=== PATIENT | male | born 1975 | race Two or more races ===

== ENCOUNTER 2023-06-28 09:35 | Emergency (ER) | payer MEDICAID ==
[~2023-06-28] VITALS: Ht 172.7 cm; Wt 91.8 kg
[2023-06-28 10:05] LABS: Basophils # (auto) 0.1 10 ^3/uL (0-0.2); Eosinophils # (auto) 0.2 10 ^3/uL (0-0.8); Hemoglobin 11.6 g/dL (13.5-17.5); Lymphocytes # (auto) 1.4 10 ^3/uL (0.4-5.4); Mean Corpuscular Hemoglobin 24.6 pg (28.0-32.0)
[2023-06-28 10:08] LABS: Basophils % (auto) 1.2 % (0.0-2.0); Eosinophils % (auto) 2.3 % (0.0-7.0); Lymphocytes % (auto) 14.5 % (10.0-50.0); Mean Corpuscular Hgb Conc. 32.2 g/dL (32.0-36.0); Mean Corpuscular Volume 76.4 fL (80.0-100.0); Monocytes # (auto) 0.8 10 ^3/uL (0-1.3); Monocytes % (auto) 8.2 % (0.0-12.0); Neutrophils % (auto) 73.8 % (37.0-80.0); Red Blood Cells 4.71 10^6/uL (4.5-5.90); Red Cell Distribution Width 16.8 % (11.8-14.3); White Blood Cell 9.5 10^3/uL (4.4-10.8)
[2023-06-28 10:22] VITALS: BP 127/69; TEMP 97.4
[2023-06-28 10:26] LABS: Alanine Aminotransferase 20 U/L (7-40); Albumin 4.3 g/dL (3.2-4.8); Alkaline Phosphatase 125 U/L (46-116); Anion Gap 5 (5-15); Aspartate Aminotransferase 36 U/L (13-40); BUN/Creatinine Ratio 17.5 (10.0-20.0); Blood Urea Nitrogen 14 mg/dL (9-23); Carbon Dioxide 26 mmol/L (20-30); Chloride 107 mmol/L (98-107); Glucose 96 mg/dL (74-106); Sodium 138 mmol/L (136-145)
[2023-06-28 10:27] LABS: Bilirubin, Total 0.7 mg/dL (0.2-1.0); Total Protein 8.7 g/dL (5.7-8.2)
[2023-06-28 10:52] VITALS: PULSE 67
[2023-06-28] MEDS ORDERED: AZITTAB PO (11:09)
[2023-06-28] MEDS ORDERED: LISI-711 PO (11:09)
[2023-06-28] MEDS ORDERED: GABA-1308 PO (11:09)
[2023-06-28] MEDS ORDERED: HYDR50TA32 PO (11:09)
[2023-06-28] MEDS ORDERED: ALBU108A5 IN (11:10)
[2023-06-28] MEDS ORDERED: ALBUTEROL SULF 2.5 MG/0.5ML(0.5%) NEB SOLN NEB ONE (11:15)
[2023-06-28] MEDS ORDERED: IPRATROPIUM BROM 0.5 MG/2.5ML INH SOL NEB ONE (11:15)
[2023-06-28 11:20] VITALS: RESP 20; O2SAT 94
[2023-06-28] MEDS ORDERED: cefTRIAXone SOD 1,000 MG VL IM ONE (11:45)
[2023-06-28] MEDS ORDERED: PRED20TA2 PO (11:46)
== END 2023-06-28 11:46 | disposition home or self-care (01) ==
LOC: ER 09:35
DX: J18.9 Pneumonia, unspecified organism (principal)
CPT/HCPCS: 36415; 71046; 80053; 83880; 85025; 93005; 94640; 96372; 99285; J0696; J7644

== ENCOUNTER 2023-07-04 10:33 | Inpatient (IN) | payer MEDICAID ==
[~2023-07-04] VITALS: Ht 172.7 cm; Wt 92.4 kg
[2023-07-04 04:56] VITALS: PULSE 62; RESP 20; O2SAT 94
[~2023-07-04 10:33] MED LIST: ALBU108A5 IN; AZITTAB PO; GABA-1308 PO; HYDR50TA32 PO; LISI-711 PO; PRED20TA2 PO
[2023-07-04] MEDS ORDERED: ASPirin 325 MG TAB PO ONE (10:45)
[2023-07-04 10:46] LABS: Basophils # (auto) 0.1 10 ^3/uL (0-0.2); Eosinophils # (auto) 0.2 10 ^3/uL (0-0.8); Eosinophils % (auto) 2.7 % (0.0-7.0); Lymphocytes # (auto) 1.4 10 ^3/uL (0.4-5.4); Monocytes # (auto) 0.6 10 ^3/uL (0-1.3); Monocytes % (auto) 7.3 % (0.0-12.0); Neutrophils # (auto) 6.1 10 ^3/uL (1.6-8.6); Nucleated Red Blood Cells % 0.1 %; White Blood Cell 8.4 10^3/uL (4.4-10.8)
[2023-07-04 10:48] LABS: Hematocrit 34.6 % (41.0-53.0); Lymphocytes % (auto) 16.7 % (10.0-50.0); Mean Corpuscular Hemoglobin 24.1 pg (28.0-32.0); Mean Corpuscular Hgb Conc. 31.7 g/dL (32.0-36.0); Mean Corpuscular Volume 76.2 fL (80.0-100.0); Neutrophils % (auto) 72.3 % (37.0-80.0); Red Blood Cells 4.54 10^6/uL (4.5-5.90)
[2023-07-04 11:03] VITALS: PULSE 64; O2SAT 90
[2023-07-04 11:10] LABS: Alanine Aminotransferase 49 U/L (7-40); Albumin 4.1 g/dL (3.2-4.8); Alkaline Phosphatase 121 U/L (46-116); Anion Gap 5 (5-15); Aspartate Aminotransferase 62 U/L (13-40); BUN/Creatinine Ratio 10.3 (10.0-20.0); Blood Urea Nitrogen 8 mg/dL (9-23); Calcium 9.4 mg/dL (8.5-10.1); Carbon Dioxide 27 mmol/L (20-30); Chloride 109 mmol/L (98-107); Glucose 99 mg/dL (74-106); Potassium 4.2 mmol/L (3.5-5.1); Sodium 141 mmol/L (136-145)
[2023-07-04 11:11] LABS: Bilirubin, Total 0.8 mg/dL (0.2-1.0); Total Protein 8.1 g/dL (5.7-8.2)
[2023-07-04] MEDS ORDERED: IOHEXOL 350 MG/ML 100ML IJ ONE (12:03)
[2023-07-04] MEDS ORDERED: NITROGLYCERIN 0.4 MG SL TAB SL PRN (13:15)
[2023-07-04] MEDS ORDERED: MORPHINE SULFATE INJ 2 MG/ml SYRG IV PRN (13:15)
[2023-07-04] MEDS ORDERED: ONDANSETRON HCL 4 MG/2 ML VIAL IV PRN (13:15)
[2023-07-04] MEDS ORDERED: THIAMINE HCL 100 MG TAB PO ONE (13:30)
[2023-07-04] MEDS ORDERED: methylPREDNISolone SOD SUCC 40 MG/ML VL IV ONE (13:30)
[2023-07-04] MEDS ORDERED: MULTIPLE VITAMIN TAB PO ONE (13:30)
[2023-07-04] MEDS ORDERED: FOLIC ACID 1 MG TAB PO ONE (13:30)
[2023-07-04 13:58] VITALS: BP 148/68; PULSE 64; RESP 16; TEMP 98.1; O2SAT 94
[2023-07-04 15:36] LABS: Urine Bacteria NONE SEEN /hpf (None Seen); Urine Blood Negative /uL (Negative); Urine Clarity Clear (Clear); Urine Color Colorless (Yellow); Urine Protein, UAD Negative (Negative); Urine Specific Gravity 1.035 (1.001-1.035); Urine Urobilinogen Normal (Negative); Urine WBC <1 /hpf (0 - 3); Urine pH 6.5 (5.0-8.0)
[2023-07-04] MEDS: IPRATROPIUM BROM 0.5 MG/2.5ML INH SOL NEB SCH (17:55)
[2023-07-04] MEDS: ALBUTEROL SULF 2.5 MG/0.5ML(0.5%) NEB SOLN NEB SCH (17:55)
[2023-07-04 18:05] VITALS: PULSE 20; RESP 66; O2SAT 98
[2023-07-04 19:00] VITALS: PULSE 69; RESP 28; O2SAT 92
[2023-07-04] MEDS: ATORVASTATIN 20 MG TAB PO SCH (22:00)
[2023-07-04] MEDS: GABAPENTIN 100 MG CAP PO SCH (22:00)
[2023-07-05] VITALS (17 sets, daily range): BP systolic 122–153; BP diastolic 58–79; PULSE 53–74; RESP 16–19; TEMP 97.7–98.9; O2SAT 92–100
[2023-07-05] MEDS ORDERED: CITA10TA8 PO (04:47)
[2023-07-05] MEDS: IPRATROPIUM BROM 0.5 MG/2.5ML INH SOL NEB SCH ×3 (05:58→19:02)
[2023-07-05] MEDS: ALBUTEROL SULF 2.5 MG/0.5ML(0.5%) NEB SOLN NEB SCH ×3 (05:58→19:02)
[2023-07-05 06:09] LABS: Basophils # (auto) 0 10 ^3/uL (0-0.2); Basophils % (auto) 0.1 % (0.0-2.0); Eosinophils # (auto) 0 10 ^3/uL (0-0.8); Lymphocytes # (auto) 0.9 10 ^3/uL (0.4-5.4); Monocytes # (auto) 0.5 10 ^3/uL (0-1.3); Nucleated Red Blood Cells % 0.1 %
[2023-07-05 06:11] LABS: Hematocrit 34.4 % (41.0-53.0); Lymphocytes % (auto) 9.5 % (10.0-50.0); Mean Corpuscular Hemoglobin 23.9 pg (28.0-32.0); Mean Corpuscular Volume 74.9 fL (80.0-100.0); Monocytes % (auto) 4.9 % (0.0-12.0); Neutrophils # (auto) 8.2 10 ^3/uL (1.6-8.6); Neutrophils % (auto) 85.5 % (37.0-80.0); Red Blood Cells 4.59 10^6/uL (4.5-5.90); Red Cell Distribution Width 16.8 % (11.8-14.3); White Blood Cell 9.6 10^3/uL (4.4-10.8)
[2023-07-05 06:27] LABS: Alanine Aminotransferase 40 U/L (7-40); Albumin 3.9 g/dL (3.2-4.8); Alkaline Phosphatase 108 U/L (46-116); Anion Gap 7 (5-15); Aspartate Aminotransferase 45 U/L (13-40); BUN/Creatinine Ratio 10.4 (10.0-20.0); Bilirubin, Total 0.8 mg/dL (0.2-1.0); Blood Urea Nitrogen 8 mg/dL (9-23); Calcium 9.2 mg/dL (8.5-10.1); Carbon Dioxide 24 mmol/L (20-30); Chloride 108 mmol/L (98-107); Cholesterol 139 mg/dL (< 200); Glucose 145 mg/dL (74-106); HDL Cholesterol 42 mg/dL (40-59); LDL Cholesterol 88 mg/dL (< 100); Potassium 4.4 mmol/L (3.5-5.1); Sodium 139 mmol/L (136-145); Triglycerides 54 mg/dL (< 150)
[2023-07-05] MEDS ORDERED: ADENOSINE 78 MG in GIVE UN-DILUTED 0 ML IV ONE (07:45)
[2023-07-05] MEDS ORDERED: methylPREDNISolone SOD SUCC 40 MG/ML VL IV SCH (10:00)
[2023-07-05] MEDS: FOLIC ACID 1 MG TAB PO SCH (10:11)
[2023-07-05] MEDS: MULTIPLE VITAMIN TAB PO SCH (10:11)
[2023-07-05] MEDS: GABAPENTIN 100 MG CAP PO SCH ×2 (10:11→22:16)
[2023-07-05] MEDS: LISINOPRIL 20 MG TAB PO SCH (10:11)
[2023-07-05] MEDS: ASPirin-EC 81 mg tab PO SCH (10:11)
[2023-07-05] MEDS: THIAMINE HCL 100 MG TAB PO SCH (10:12)
[2023-07-05] MEDS: PANTOPRAZOLE 40 MG TAB PO SCH (10:12)
[2023-07-05] MEDS ORDERED: DOXYCYCLINE 100 MG TAB/CAP PO ONE (11:45)
[2023-07-05] MEDS ORDERED: ACETAMINOPHEN 325 MG TAB PO PRN (18:30)
[2023-07-05] MEDS ORDERED: CITALOPRAM HYDROBR 20 MG TAB PO ONE (20:00)
[2023-07-05] MEDS: ATORVASTATIN 20 MG TAB PO SCH (22:16)
[2023-07-05] MEDS: DOXYCYCLINE 100 MG TAB/CAP PO SCH (22:16)
[2023-07-06] VITALS (9 sets, daily range): BP systolic 124–153; BP diastolic 71–86; PULSE 50–71; RESP 16–18; TEMP 97.9–98.7; O2SAT 92–100
[2023-07-06] MEDS: IPRATROPIUM BROM 0.5 MG/2.5ML INH SOL NEB SCH ×2 (06:18→12:50)
[2023-07-06] MEDS: ALBUTEROL SULF 2.5 MG/0.5ML(0.5%) NEB SOLN NEB SCH ×2 (06:18→12:50)
[2023-07-06 06:49] LABS: Basophils # (auto) 0 10 ^3/uL (0-0.2); Basophils % (auto) 0.3 % (0.0-2.0); Eosinophils # (auto) 0.1 10 ^3/uL (0-0.8); Eosinophils % (auto) 0.5 % (0.0-7.0); Hemoglobin 10.9 g/dL (13.5-17.5)
[2023-07-06 06:51] LABS: Hematocrit 34.6 % (41.0-53.0); Lymphocytes # (auto) 2.1 10 ^3/uL (0.4-5.4); Lymphocytes % (auto) 18.2 % (10.0-50.0); Mean Corpuscular Hemoglobin 23.7 pg (28.0-32.0); Mean Corpuscular Hgb Conc. 31.6 g/dL (32.0-36.0); Mean Corpuscular Volume 74.9 fL (80.0-100.0); Monocytes # (auto) 0.7 10 ^3/uL (0-1.3); Monocytes % (auto) 5.9 % (0.0-12.0); Neutrophils # (auto) 8.7 10 ^3/uL (1.6-8.6); Neutrophils % (auto) 75.1 % (37.0-80.0); Nucleated Red Blood Cells % 0.3 %; Red Blood Cells 4.62 10^6/uL (4.5-5.90); White Blood Cell 11.6 10^3/uL (4.4-10.8)
[2023-07-06 07:07] LABS: Alanine Aminotransferase 33 U/L (7-40); Albumin 3.9 g/dL (3.2-4.8); Alkaline Phosphatase 111 U/L (46-116); Anion Gap 7 (5-15); Aspartate Aminotransferase 33 U/L (13-40); BUN/Creatinine Ratio 14.5 (10.0-20.0); Blood Urea Nitrogen 10 mg/dL (9-23); Carbon Dioxide 26 mmol/L (20-30); Chloride 107 mmol/L (98-107); Glucose 89 mg/dL (74-106); LDL Cholesterol 83 mg/dL (< 100); Potassium 3.9 mmol/L (3.5-5.1); Sodium 140 mmol/L (136-145); Triglycerides 61 mg/dL (< 150)
[2023-07-06 07:08] LABS: Bilirubin, Total 0.8 mg/dL (0.2-1.0); Cholesterol 134 mg/dL (< 200); Ferritin 8.2 ng/mL (22-322); Folate (Folic Acid) 16.37 ng/mL (>5.38); HDL Cholesterol 41 mg/dL (40-59); Total Protein 7.8 g/dL (5.7-8.2)
[2023-07-06 07:26] LABS: Magnesium 1.9 mg/dL (1.6-2.6)
[2023-07-06] MEDS ORDERED: CITALOPRAM HYDROBR 20 MG TAB PO SCH (10:00)
[2023-07-06] MEDS ORDERED: FERROUS SULFATE 325mg EC TAB PO SCH (10:00)
[2023-07-06] MEDS ORDERED: ERGOCALCIFEROL 50,000 UNIT(1.25MG) CAP PO SCH (10:00)
[2023-07-06] MEDS: ASPirin-EC 81 mg tab PO SCH (11:04)
[2023-07-06] MEDS: GABAPENTIN 100 MG CAP PO SCH (11:04)
[2023-07-06] MEDS: PANTOPRAZOLE 40 MG TAB PO SCH (11:04)
[2023-07-06] MEDS: MULTIPLE VITAMIN TAB PO SCH (11:04)
[2023-07-06] MEDS: FOLIC ACID 1 MG TAB PO SCH (11:04)
[2023-07-06] MEDS: DOXYCYCLINE 100 MG TAB/CAP PO SCH (11:05)
[2023-07-06] MEDS: THIAMINE HCL 100 MG TAB PO SCH (11:05)
[2023-07-06] MEDS: LISINOPRIL 20 MG TAB PO SCH (11:08)
[2023-07-06 11:38] LABS: COVID19 ANTIGEN SOFIA FIA NEGATIVE (NEGATIVE); Rapid Influenza A Negative (Negative); Rapid Influenza B Negative (Negative)
[2023-07-06] MEDS ORDERED: ATOR20TA50 PO (13:35)
== END 2023-07-06 18:25 | disposition home or self-care (01) | DRG 142 ==
LOC: ER 10:33 → TELE 13:09 → TELE-WESTW 23:00
PROVIDERS: ADMIT Internal Medicine; ATTEND Student in an Organized Health Care Education/Training Program
DX: J84.9 Interstitial pulmonary disease, unspecified (principal); J96.01 Acute respiratory failure with hypoxia; J15.9 Unspecified bacterial pneumonia; I11.9 Hypertensive heart disease without heart failure; J84.10 Pulmonary fibrosis, unspecified; K70.30 Alcoholic cirrhosis of liver without ascites; E11.9 Type 2 diabetes mellitus without complications; D50.9 Iron deficiency anemia, unspecified; E05.90 Thyrotoxicosis, unspecified without thyrotoxic crisis or storm; E55.9 Vitamin D deficiency, unspecified; R07.81 Pleurodynia; K21.9 Gastro-esophageal reflux disease without esophagitis; E66.9 Obesity, unspecified; Z20.822 Contact with and (suspected) exposure to COVID-19; E78.5 Hyperlipidemia, unspecified; J43.9 Emphysema, unspecified; F41.0 Panic disorder [episodic paroxysmal anxiety]; K80.20 Calculus of gallbladder without cholecystitis without obstruction; F10.10 Alcohol abuse, uncomplicated; F41.9 Anxiety disorder, unspecified; Z82.3 Family history of stroke; Z82.49 Family history of ischemic heart disease and other diseases of the circulatory system; Z79.899 Other long term (current) drug therapy; Z83.3 Family history of diabetes mellitus; Z68.31 Body mass index [BMI] 31.0-31.9, adult
CPT/HCPCS: 36415; 71045; 71275; 78452; 80053; 80061; 81001; 82306; 82607; 82728; 82746; 83036; 83605; 83735; 83880; 84443; 84484; 85025; 85379; 87081; 87426; 87804; 93005; 93017; 93306; 94640; G0378; J0153

== ENCOUNTER 2023-08-11 16:51 | Inpatient (IN) | payer MEDICAID ==
[~2023-08-11] VITALS: Ht 170.2 cm; Wt 94.8 kg
[~2023-08-11 16:51] MED LIST changes: +ATOR20TA50 PO; +CITA10TA8 PO
[2023-08-11 17:34] LABS: Basophils # (auto) 0.1 10 ^3/uL (0-0.2); Basophils % (auto) 0.8 % (0.0-2.0); Eosinophils # (auto) 0.4 10 ^3/uL (0-0.8); Eosinophils % (auto) 3.4 % (0.0-7.0); Hematocrit 35.8 % (41.0-53.0); Hemoglobin 11.3 g/dL (13.5-17.5); Lymphocytes # (auto) 1.4 10 ^3/uL (0.4-5.4); Lymphocytes % (auto) 13.5 % (10.0-50.0); Mean Corpuscular Hemoglobin 22.5 pg (28.0-32.0); Mean Corpuscular Hgb Conc. 31.5 g/dL (32.0-36.0); Mean Corpuscular Volume 71.4 fL (80.0-100.0); Monocytes # (auto) 0.8 10 ^3/uL (0-1.3); Monocytes % (auto) 7.6 % (0.0-12.0); Neutrophils # (auto) 7.9 10 ^3/uL (1.6-8.6); Neutrophils % (auto) 74.7 % (37.0-80.0); Red Blood Cells 5.01 10^6/uL (4.5-5.90); Red Cell Distribution Width 17.1 % (11.8-14.3); White Blood Cell 10.6 10^3/uL (4.4-10.8)
[2023-08-11 17:48] LABS: Alanine Aminotransferase 25 U/L (7-40); Albumin 4.2 g/dL (3.2-4.8); Alkaline Phosphatase 138 U/L (46-116); Anion Gap 7 (5-15); Aspartate Aminotransferase 39 U/L (13-40); BUN/Creatinine Ratio 11.2 (10.0-20.0); Blood Urea Nitrogen 10 mg/dL (9-23); Calcium 8.9 mg/dL (8.7-10.4); Carbon Dioxide 23 mmol/L (20-30); Chloride 109 mmol/L (98-107); Glucose 96 mg/dL (74-106); Potassium 4.2 mmol/L (3.5-5.1); Sodium 139 mmol/L (136-145); Total Protein 7.7 g/dL (5.7-8.2)
[2023-08-11 18:00] LABS: INR 1.12 (0.9-1.15); Partial Thromboplastin Time 27.3 SEC (24.5-34.5); Prothrombin Time 11.9 sec (9.3-11.8)
[2023-08-11] MEDS ORDERED: IPRATROPIUM BROM 0.5 MG/2.5ML INH SOL NEB ONE (18:45)
[2023-08-11] MEDS ORDERED: DexAMETHasone SOD PHOS 10MG/1ML VIAL INJ IM ONE (18:45)
[2023-08-11] MEDS ORDERED: ALBUTEROL MEDNEB 2.5 mg/3ml NEB NEB ONE (18:45)
[2023-08-11 19:44] LABS: COVID19 ANTIGEN SOFIA FIA POSITIVE (NEGATIVE)
[2023-08-11 19:45] LABS: Rapid Influenza A Negative (Negative); Rapid Influenza B Negative (Negative)
[2023-08-11] MEDS ORDERED: AZITHROMYCIN 250 MG TAB PO ONE (20:00)
[2023-08-11] MEDS ORDERED: ACETAMINOPHEN/CODEINE#3 (300/30mg) TAB PO ONE (20:15)
[2023-08-11] MEDS ORDERED: HYDROcodone-ACET 5/325MG TAB PO PRN (23:00)
[2023-08-11] MEDS ORDERED: ACETAMINOPHEN 500 MG TAB PO PRN (23:00)
[2023-08-11] MEDS ORDERED: ONDANSETRON HCL 4 MG/2 ML VIAL IV PRN (23:00)
[2023-08-11] MEDS ORDERED: ALBUTEROL SULF HFA 90MCG INH 200DOSE IN PRN (23:00)
[2023-08-11] MEDS ORDERED: DOCUSATE SOD 100 MG CAP PO PRN (23:00)
[2023-08-11 23:41] LABS: CRP High Sensitivity 0.94 mg/dL (<1.0)
[2023-08-12] VITALS (9 sets, daily range): BP systolic 113–158; BP diastolic 50–73; PULSE 52–76; RESP 16–26; TEMP 98–99.1; O2SAT 92–99
[2023-08-12] MEDS ORDERED: MORPHINE SULFATE INJ 2 MG/ml SYRG IV PRN
[2023-08-12] MEDS ORDERED: NITROGLYCERIN 0.4 MG SL TAB SL PRN
[2023-08-12 05:05] LABS: Basophils # (auto) 0 10 ^3/uL (0-0.2); Basophils % (auto) 0.2 % (0.0-2.0); Eosinophils # (auto) 0 10 ^3/uL (0-0.8); Monocytes # (auto) 0.1 10 ^3/uL (0-1.3); Neutrophils # (auto) 4.6 10 ^3/uL (1.6-8.6); White Blood Cell 5.4 10^3/uL (4.4-10.8)
[2023-08-12 05:09] LABS: Hematocrit 35.2 % (41.0-53.0); Lymphocytes # (auto) 0.7 10 ^3/uL (0.4-5.4); Mean Corpuscular Hemoglobin 22.8 pg (28.0-32.0); Mean Corpuscular Hgb Conc. 31.2 g/dL (32.0-36.0); Mean Corpuscular Volume 73.3 fL (80.0-100.0); Monocytes % (auto) 1.8 % (0.0-12.0); Nucleated Red Blood Cells % 0.1 %; Red Cell Distribution Width 17.1 % (11.8-14.3)
[2023-08-12 05:35] LABS: Alanine Aminotransferase 17 U/L (7-40); Albumin 4.3 g/dL (3.2-4.8); Alkaline Phosphatase 126 U/L (46-116); Anion Gap 6 (5-15); Aspartate Aminotransferase 30 U/L (13-40); BUN/Creatinine Ratio 13.2 (10.0-20.0); Bilirubin, Total 0.8 mg/dL (0.2-1.0); Blood Urea Nitrogen 12 mg/dL (9-23); Calcium 9.1 mg/dL (8.7-10.4); Carbon Dioxide 23 mmol/L (20-30); Chloride 109 mmol/L (98-107); Glucose 174 mg/dL (74-106); Potassium 4.5 mmol/L (3.5-5.1); Sodium 138 mmol/L (136-145); Total Protein 7.9 g/dL (5.7-8.2)
[2023-08-12] MEDS ORDERED: DOXYCYCLINE 100MG/250ML 250 ML IV SCH (10:00)
[2023-08-12] MEDS ORDERED: FAMOTIDINE (10MG/ML) 2ML VL IV SCH (10:00)
[2023-08-12] MEDS ORDERED: ASCORBIC ACID 1,000 MG TAB PO SCH (10:00)
[2023-08-12] MEDS ORDERED: CHOLECALCIFEROL (VITD3) 2,000 UNIT CAP/TAB PO SCH (10:00)
[2023-08-12] MEDS ORDERED: BUDESONIDE (INHALATION) 180 MCG IH IN SCH (10:00)
[2023-08-12] MEDS ORDERED: MULTIPLE VITAMIN TAB PO SCH (10:00)
[2023-08-12] MEDS: ZINC SULFATE 220mg CAP or TAB PO SCH (12:58)
[2023-08-12] MEDS: ENOXAPARIN SOD 40 MG/0.4 ML SYRINGE SC SCH (12:59)
[2023-08-12] MEDS ORDERED: REMDESIVIR PER PHARMACY 0 ML IV SCH (13:00)
[2023-08-12] MEDS ORDERED: levoFLOXacin 750MG 150 ML IV ONE (13:00)
[2023-08-12] MEDS: DexAMETHasone SOD PHOS 10MG/1ML VIAL INJ IV SCH (13:08)
[2023-08-12] MEDS: REMDESIVIR 200 MG in NS 210ml LOADING DOSE ADULT IV ONE ×2 (14:47→15:22)
[2023-08-12] MEDS ORDERED: IOHEXOL 350 MG/ML 100ML IJ ONE (14:54)
[2023-08-12] MEDS ORDERED: hydrOXYzine 25 MG TAB or CAP PO PRN (16:45)
[2023-08-12] MEDS: CITALOPRAM HYDROBR 20 MG TAB PO SCH (17:29)
[2023-08-12] MEDS ORDERED: LISINOPRIL 20 MG TAB PO ONE (18:00)
[2023-08-12] MEDS ORDERED: ATORVASTATIN 20 MG TAB PO SCH (22:00)
[2023-08-13 05:07] VITALS: BP 119/68; PULSE 58; RESP 18; TEMP 98.3; O2SAT 95
[2023-08-13 05:56] LABS: Basophils # (auto) 0 10 ^3/uL (0-0.2); Eosinophils # (auto) 0 10 ^3/uL (0-0.8); Mean Corpuscular Volume 73.2 fL (80.0-100.0)
[2023-08-13 05:59] LABS: Hematocrit 34.5 % (41.0-53.0); Hemoglobin 10.6 g/dL (13.5-17.5); Lymphocytes # (auto) 1.2 10 ^3/uL (0.4-5.4); Lymphocytes % (auto) 8.2 % (10.0-50.0); Mean Corpuscular Hemoglobin 22.5 pg (28.0-32.0); Mean Corpuscular Hgb Conc. 30.8 g/dL (32.0-36.0); Monocytes # (auto) 0.5 10 ^3/uL (0-1.3); Monocytes % (auto) 3.9 % (0.0-12.0); Neutrophils # (auto) 12.4 10 ^3/uL (1.6-8.6); Neutrophils % (auto) 87.9 % (37.0-80.0); Red Blood Cells 4.72 10^6/uL (4.5-5.90); Red Cell Distribution Width 16.7 % (11.8-14.3); White Blood Cell 14.1 10^3/uL (4.4-10.8)
[2023-08-13 06:31] LABS: Alanine Aminotransferase 13 U/L (7-40); Albumin 3.9 g/dL (3.2-4.8); Alkaline Phosphatase 112 U/L (46-116); Anion Gap 9 (5-15); Aspartate Aminotransferase 22 U/L (13-40); BUN/Creatinine Ratio 17.6 (10.0-20.0); Bilirubin, Total 0.6 mg/dL (0.2-1.0); Blood Urea Nitrogen 13 mg/dL (9-23); Carbon Dioxide 21 mmol/L (20-30); Chloride 110 mmol/L (98-107); Glucose 138 mg/dL (74-106); Magnesium 2.1 mg/dL (1.6-2.6); Potassium 4.2 mmol/L (3.5-5.1); Sodium 140 mmol/L (136-145); Total Protein 7.4 g/dL (5.7-8.2)
[2023-08-13 07:37] VITALS: PULSE 47
[2023-08-13 07:43] VITALS: O2SAT 96
[2023-08-13 09:00] VITALS: BP 140/71; PULSE 95; RESP 16; TEMP 98.1; O2SAT 77
[2023-08-13 09:35] VITALS: O2SAT 98
[2023-08-13] MEDS ORDERED: levoFLOXacin 750MG 150 ML IV SCH (10:00)
[2023-08-13] MEDS ORDERED: CITALOPRAM HYDROBR 20 MG TAB PO SCH (10:00)
[2023-08-13] MEDS ORDERED: CHOLECALCIFEROL (VITD3) 1,000UNIT=25mCg TAB PO SCH (10:00)
[2023-08-13] MEDS ORDERED: PANTOPRAZOLE 40 MG TAB PO SCH (10:00)
[2023-08-13] MEDS ORDERED: ASCORBIC ACID 500 MG TAB PO SCH (10:00)
[2023-08-13] MEDS ORDERED: LISINOPRIL 20 MG TAB PO SCH (10:00)
[2023-08-13] MEDS ORDERED: LEVO750T8 PO (10:18)
[2023-08-13] MEDS: ENOXAPARIN SOD 40 MG/0.4 ML SYRINGE SC SCH (11:16)
[2023-08-13] MEDS: ZINC SULFATE 220mg CAP or TAB PO SCH (11:16)
[2023-08-13] MEDS: CITALOPRAM HYDROBR 20 MG TAB PO SCH (11:16)
[2023-08-13] MEDS: DexAMETHasone SOD PHOS 10MG/1ML VIAL INJ IV SCH (11:27)
[2023-08-13 13:50] VITALS: BP 115/60; PULSE 54; RESP 20; TEMP 98.9; O2SAT 98
[2023-08-13] MEDS ORDERED: LISI20TA56 PO (14:28)
[2023-08-13] MEDS ORDERED: ACET-1079 PO (14:28)
[2023-08-13] MEDS ORDERED: REMDESIVIR 100mg 100 MG in SODIUM CHL 0.9% 230 ML IV SCH (15:00)
[2023-08-14 09:37] LABS: Hepatitis B Core Total AB Negative (Negative)
[2023-08-14 10:56] LABS: Free T3 2.41 pg/mL (2.3-4.2)
[2023-08-14 11:21] LABS: Free T4 (Free Thyroxine) 0.96 ng/dL (0.89-1.76)
[2023-08-14 15:01] LABS: Hepatitis B Surface Antigen Negative (Negative); Hepatitis C Antibody Negative (Negative)
[2023-08-14 15:02] LABS: Hepatitis A Total Antibody Positive (Negative); Hepatitis B Surface Antibody Negative (Negative)
== END 2023-08-13 15:35 | disposition home or self-care (01) | DRG 137 ==
LOC: ER 16:51 → TELE 23:48 → TELE-EAST 08-12 08:57
PROVIDERS: ADMIT Nurse Practitioner Family; ATTEND Nurse Practitioner Family
PROC: XW033E5 Introduction of Remdesivir Anti-infective into Peripheral Vein, Percutaneous Approach, New Technology Group 5 (ICD-10-PCS; principal; 2023-08-12)
DX: U07.1 COVID-19 (principal); J96.01 Acute respiratory failure with hypoxia; J12.82 Pneumonia due to coronavirus disease 2019; E66.01 Morbid (severe) obesity due to excess calories; I10 Essential (primary) hypertension; J44.0 Chronic obstructive pulmonary disease with (acute) lower respiratory infection; E78.5 Hyperlipidemia, unspecified; E03.9 Hypothyroidism, unspecified; F41.9 Anxiety disorder, unspecified; Z68.32 Body mass index [BMI] 32.0-32.9, adult
CPT/HCPCS: 36415; 71045; 71275; 80053; 83735; 83880; 84439; 84443; 84481; 84484; 85025; 85379; 85610; 85730; 86141; 86704; 86706; 86708; 86803; 87081; 87340; 87426; 87804; 93005; 93970; 94640; 96365; 96372; G0378; J1100; J1956; J3490

== ENCOUNTER 2023-08-18 13:32 | Emergency (ER) | payer MEDICAID ==
[~2023-08-18] VITALS: Ht 170.2 cm; Wt 94.9 kg
[~2023-08-18 13:32] MED LIST changes: +ACET-1079 PO; +LEVO750T8 PO; +LISI20TA56 PO
[2023-08-18 14:15] LABS: Urine WBC None Seen /hpf (0 - 3)
[2023-08-18 14:22] LABS: Urine Bacteria NONE SEEN /hpf (None Seen); Urine Blood Negative /uL (Negative); Urine Clarity Clear (Clear); Urine Color Colorless (Yellow); Urine Protein, UAD Negative (Negative); Urine Specific Gravity 1.005 (1.001-1.035); Urine Urobilinogen Normal (Negative)
[2023-08-18] MEDS ORDERED: ALBUTEROL MEDNEB 2.5 mg/3ml NEB NEB ONE (15:00)
[2023-08-18] MEDS ORDERED: IPRATROPIUM BROM 0.5 MG/2.5ML INH SOL NEB ONE (15:00)
[2023-08-18 15:04] VITALS: BP 132/83; PULSE 69; TEMP 99.4
[2023-08-18 15:26] VITALS: RESP 14; O2SAT 95
[2023-08-18] MEDS ORDERED: PRED20TA2 PO (15:47)
[2023-08-18] MEDS ORDERED: PROM1SOL4 PO (15:47)
[2023-08-18] MEDS ORDERED: ALBU108A5 IN (15:47)
== END 2023-08-18 15:56 | disposition home or self-care (01) ==
LOC: ER 13:32
DX: J20.9 Acute bronchitis, unspecified (principal); I10 Essential (primary) hypertension; R06.02 Shortness of breath; R07.89 Other chest pain
CPT/HCPCS: 71046; 81001; 93005; 94640; 99285; J7644